=== PATIENT | female | born 1985 | race Two or more races ===

== ENCOUNTER 2017-08-13 10:15 | Inpatient (IN) | payer OTHER ==
[~2017-08-13] VITALS: Ht 160 cm; Wt 3.6 kg
[2017-08-13] MEDS ORDERED: FOLIC ACID1 MG PO (12:27)
[2017-08-13] MEDS ORDERED: PRENATABS RX T1 EACH PO (12:27)
[2017-08-23] MEDS ORDERED: OXYC1TAB9 PO (13:29)
[2017-08-23] MEDS ORDERED: POLY119PG PO (13:29)
== END 2017-08-23 15:20 | DRG 766 ==
LOC: O/R 08-20 07:22 → OB/GYN 08-20 07:22 → O/R 08-20 08:30 → OB/GYN 08-20 15:01
PROVIDERS: Obstetrics & Gynecology
PROC: 0UT70ZZ Resection of Bilateral Fallopian Tubes, Open Approach (ICD-10-PCS; 2017-08-20)
PROC: 4A1HXCZ Monitoring of Products of Conception, Cardiac Rate, External Approach (ICD-10-PCS; 2017-08-20)
PROC: 4A033R1 Measurement of Arterial Saturation, Peripheral, Percutaneous Approach (ICD-10-PCS; 2017-08-20)
PROC: 10D00Z1 Extraction of Products of Conception, Low, Open Approach (ICD-10-PCS; principal; 2017-08-20 08:30)
DX: O34.211 Maternal care for low transverse scar from previous cesarean delivery (principal); Z3A.39 39 weeks gestation of pregnancy; Z37.0 Single live birth; Z30.2 Encounter for sterilization; Z64.1 Problems related to multiparity